=== PATIENT | female | born 1975 | race Caucasian/White ===

== ENCOUNTER 2019-02-13 23:15 | Emergency (ER) | payer OTHER ==
[~2019-02-13] VITALS: Ht 170.2 cm; Wt 63.5 kg
[~2019-02-13 23:15] MED LIST: AMBIEN 10 MG TA10 MG; BACTRIM DS TAB1 EACH PO; BUTALB-APAP-CA1 EACH PO; CARISOPRODOL 3350 MG PO; CIPROFLOXACIN500 M1 PO; CIPROFLOXACIN500 M3 PO; CYMBALTA30 MG PO; FLAGYL500 M1 PO; GABAPENTIN100 MG PO; HYDROCODON-ACE1 EAC7 PO; LAMICTAL100 MG PO; NORCO 5-325 TA1 EACH PO; PYRIDIUM200 MG PO; SEPTRA DS TABL1 EACH PO; SYNTHROID150 MCG; VICODIN 5-5001 EACH PO; XANAX1 MG PO; ZOFRAN 4 MG ORAL4 M1 DIS
[2019-02-13] MEDS ORDERED: ABILIFY10 MG PO (23:25)
[2019-02-13] MEDS ORDERED: CELEXA40 MG PO (23:25)
[2019-02-14 00:28] LABS: ABSOLUTE LYMPHOCYTES 0.9 thou/uL (0.8-5.3); ABSOLUTE MONOCYTES 0.5 thou/uL (0.0-1.2); ABSOLUTE NEUTROPHILS 4.3 thou/uL (1.6-8.1); BASOPHILS 0.4 %; EOSINOPHILS 0.3 %; HEMATOCRIT 40.6 % (37.0-47.0); HEMOGLOBIN 13.9 gm/dL (12.0-15.0); LYMPHOCYTES 15.6 %; MCH 29.9 pg (26.0-34.0); MCHC 34.2 g/dL (28.0-37.0); MCV 87.5 fL (80.0-100.0); MONOCYTES 8.7 %; MPV 8.8 fl. (7.2-11.1); NUCLEATED RBCS 0 /100WBC; PLATELET COUNT* 204 thou/uL (150-400); RBC 4.64 mil/uL (4.20-5.00); RDW-CV 13.9 % (10.5-14.5); WBC 5.7 thou/uL (4.0-11.0)
[2019-02-14 00:34] LABS: CALCIUM 9.5 mg/dL (8.5-10.1); CREATININE 1.1 mg/dL (0.6-1.3); POTASSIUM 3.5 mmol/L (3.5-5.1)
[2019-02-14 00:39] LABS: ALBUMIN 4.3 g/dL (3.4-5.0); TOTAL BILIRUBIN 0.4 mg/dL (<0.1-1.0); TOTAL PROTEIN 7.7 g/dL (6.4-8.2)
[2019-02-14 00:42] LABS: PROTIME 10.3 Seconds (9.20-11.50)
[2019-02-14 00:59] LABS: URINE BILIRUBIN NEGATIVE (Negative); URINE BLOOD NEGATIVE (Negative); URINE CLARITY CLEAR; URINE COLOR YELLOW; URINE GLUCOSE-RANDOM NEGATIVE (Negative); URINE KETONES NEGATIVE (Negative); URINE LEUKOCYTES-REFLEX TRACE (Negative); URINE NITRITE-REFLEX NEGATIVE (Negative); URINE PROTEIN NEGATIVE (Negative); URINE SPECIFIC GRAVITY <= 1.005 (1.005-1.030); URINE UROBILINOGEN 0.2 E.U./dl (0.2-1.0)
[2019-02-14 01:14] LABS: BACTERIA-REFLEX >30 Many /HPF (None Seen); CASTS None Seen /LPF (None Seen); CRYSTALS None Seen /LPF (None Seen); MUCUS 0-3 Light strn/LPF (None Seen); SQUAMOUS 0-3 Few /LPF (0-3); URINE RBC 3-10 Few /HPF (0-2); URINE WBC-REFLEX >25 Many /HPF (0-5); WBC CLUMPS Few (None Seen)
[2019-02-14] MEDS ORDERED: NORCO 7.5-3251 EACH PO (03:08)
[2019-02-14 03:22] VITALS: BP 155/97
--- NOTE | 2019-02-14 17:04 | EKG ---
[place] [address] ELECTROCARDIOGRAM REPORT Name: YAIRCARLIJUNG Room: [facility]#: [id number] Admission: 02/13/19 Attend Phys: Discharge: 02/14/19 Date of : 71 Report #: [id number] THIS REPORT FOR: //name// [facility] ED Test Date: 2019-02-13 Test Time: 23:20:54 Pat Name: KATT NEAL Department: Room: Gender: F Copyright Manager: GAY : 1975 Requested By: Gill Shelley Order Number: [id number] MD: Yusuf Calvo Measurements Intervals [place] Rate: 80 P: 35 OK: 128 QRS: -9 QRSD: 87 T: 47 QT: 385 QTc: 445 Interpretive Statements Sinus rhythm Compared to ECG 03/03/2016 00:44:59 No significant changes Electronically Signed On 02-14-2019 17:03:53 CDT by Yusuf Calvo [email or web address] <ELECTRONICALLY SIGNED> By: Yusuf Calvo MD, [facility] 02/14/19 1703 2320 19 Yusuf Calvo MD, FACC /EPI
== END 2019-02-14 03:26 | disposition home or self-care (01) ==
LOC: M.ERS 23:15
PROVIDERS: Emergency Medicine
DX: B34.9 Viral infection, unspecified (principal); G43.909 Migraine, unspecified, not intractable, without status migrainosus; M32.9 Systemic lupus erythematosus, unspecified; M79.7 Fibromyalgia; Z88.0 Allergy status to penicillin; Z79.899 Other long term (current) drug therapy